=== PATIENT | female | born 1970 | race African-American/Black ===

== ENCOUNTER 2016-10-13 13:24 | Observation (INO) | payer MEDICARE, OTHER ==
[2016-10-13 13:34] VITALS: BMI 40.7
[2016-10-13 15:37] LABS: URINE APPEARANCE CLOUDY; URINE BILIRUBIN NEGATIVE (NEGATIVE); URINE COLOR LT. YELLOW; URINE GLUCOSE (UA) NEGATIVE (NEGATIVE); URINE KETONE NEGATIVE (NEGATIVE); URINE LEUK ESTERASE NEGATIVE (NEGATIVE); URINE NITRITE NEGATIVE (NEGATIVE); URINE UROBILINOGEN 0.2 E.U/dl E.U./dl (0.2-1.0)
[2016-10-13 15:50] LABS: URINE BLOOD 3+ (NEGATIVE); URINE PROTEIN 3+ (NEGATIVE)
[2016-10-13] MEDS ORDERED: SODIUM CHLORIDE 1,000 ML IV STA (15:56)
[2016-10-13] MEDS ORDERED: ONDANSETRON 4 MG/2 ML VIAL IVPUSH ONE (15:56)
[2016-10-13 16:02] LABS: URINE RBC TOO MANY TO COUNT /hpf (0-3)
[2016-10-13] MEDS ORDERED: MECLIZINE HCL 25 MG TABLET (FP) PO ONE ×2 (16:02→18:44)
[2016-10-13] MEDS ORDERED: ONDANSETRON 4 MG/2 ML VIAL ONE (16:02)
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
[2016-10-13 16:31] LABS: BASOPHIL 0.5 % (0-2.0); EOSINOPHIL 0.6 % (0-4.5); MCH 25.7 pg (25.7-33.7); MCHC 31.3 g/dl (32.0-36.0); MEAN CELL VOLUME 81.9 fl (80-96); MEAN PLT VOLUME 9.3 fl (7.5-11.1); PLATELET COUNT 194 K/MM3 (134-434); RDW 21.6 % (11.6-15.6)
[2016-10-13] MEDS ORDERED: MECLIZINE HCL 25 MG TABLET (FP) ONE ×3 (16:42→23:41)
[2016-10-13 16:51] LABS: ALBUMIN 3.9 g/dl (3.4-5.0); ANION GAP 11 (8-16); BILIRUBIN,TOTAL 0.3 mg/dL (0.2-1.0); CALCIUM 9.1 mg/dL (8.5-10.1); CO2 28 mmol/L (21-32); COCKROFT - GAULT 146.9565; CREATININE 0.9 mg/dL (0.55-1.02); GLUCOSE,RANDOM 108 mg/dL (74-106); SGOT/AST 20 U/L (15-37); SGPT/ALT 23 U/L (12-78); TOT PROT 7.6 g/dl (6.4-8.2)
[2016-10-13 16:52] LABS: ALK PHOS 77 U/L (45-117)
[2016-10-13 17:10] LABS: TROPONIN I < 0.02 ng/ml (0.00-0.05)
[2016-10-13] MEDS ORDERED: POTASSIUM CHLORIDE TABS 20 MEQ TABLET.ER (FP) PO ONE ×2 (18:10→18:14)
--- NOTE | 2016-10-13 19:39 | HP ---
CHIEF COMPLAINT: Dizziness, Nausea, Vomiting PCP: Dr. Rodriguez HISTORY OF PRESENT ILLNESS: This is a 46 y/o female with a past medical history of Hypertension, Anemia. Who presents to the emergency department with dizziness, blurred vision, nausea and vomiting x 1 day. Patient reports having a Martina taking an aspirin prior to event. Patient denies any focal deficits or numbness. Patient denies fever, chills, SOB, CP, AP, diarrhea, constipation, dysuria. Patient denies fall or head trauma. 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, employed Production Support Analyst Family History: Allergies No Known Allergies Allergy (Verified 10/13/16 13:34) HOME MEDICATIONS: Home Medications Medication Instructions Recorded Metoprolol Succinate [Toprol Xl] 0 mg PO DAILY 10/13/16 REVIEW OF SYSTEMS CONSTITUTIONAL: Absent: fever, chills, diaphoresis, generalized weakness, malaise, loss of appetite, weight change HEENT: visual changes Absent: rhinorrhea, nasal congestion, throat pain, throat swelling, difficulty swallowing, mouth swelling, ear pain, eye pain, CARDIOVASCULAR: Absent: chest pain, syncope, palpitations, irregular heart rate, lightheadedness , peripheral edema RESPIRATORY: Absent: cough, shortness of breath, dyspnea with exertion, orthopnea, wheezing, stridor, hemoptysis GASTROINTESTINAL: nausea, vomiting Absent: abdominal pain, abdominal distension, diarrhea, constipation, melena, hematochezia GENITOURINARY: Absent: dysuria, frequency, urgency, hesitancy, hematuria, flank pain, genital pain MUSCULOSKELETAL: Absent: myalgia, arthralgia, joint swelling, back pain, neck pain SKIN: Absent: rash, itching, pallor HEMATOLOGIC/IMMUNOLOGIC: Absent: easy bleeding, easy bruising, lymphadenopathy, frequent infections ENDOCRINE: Absent: unexplained weight gain, unexplained weight loss, heat intolerance, cold intolerance NEUROLOGIC: dizziness Absent: headache, focal weakness or paresthesias, unsteady gait, seizure, mental status changes, bladder or bowel incontinence PSYCHIATRIC: Absent: anxiety, depression, suicidal or homicidal ideation, hallucinations. PHYSICAL EXAMINATION Vital Signs - 24 hr 10/13/16 10/13/16 13:33 19:13 Temperature 97.8 F Pulse Rate 61 Pulse Rate [ 65 Apical] Respiratory 19 18 Rate Blood Pressure 134/79 Blood Pressure 122/78 [Left Arm] O2 Sat by Pulse 100 98 Oximetry (%) GENERAL: Awake, alert, and fully oriented, in no acute distress. HEAD: Normal with no signs of trauma. EYES: Pupils equal, round and reactive to light, extraocular movements intact, sclera anicteric, conjunctiva clear. No lid lag. EARS, NOSE, THROAT: Ears normal, nares patent, oropharynx clear without exudates. Moist mucous membranes. NECK: Normal range of motion, supple without lymphadenopathy, JVD, or masses. LUNGS: Breath sounds equal, clear to auscultation bilaterally. No wheezes, and no crackles. No accessory muscle use. HEART: Regular rate and rhythm, normal S1 and S2 without murmur, rub or gallop. ABDOMEN: Soft, nontender, not distended, normoactive bowel sounds, no guarding, no rebound, no masses. No hepatomegaly or splenomegaly. MUSCULOSKELETAL: Normal range of motion at all joints. No bony deformities or tenderness. No CVA tenderness. UPPER EXTREMITIES: 2+ pulses, warm, well-perfused. No cyanosis. No clubbing. No peripheral edema. LOWER EXTREMITIES: 2+ pulses, warm, well-perfused. No calf tenderness. No peripheral edema. NEUROLOGICAL: Cranial nerves II-XII intact. Normal speech. Gait not observed. PSYCHIATRIC: Cooperative. Good eye contact. Appropriate mood and affect. SKIN: Warm, dry, normal turgor, no rashes or lesions noted, normal capillary refill. Laboratory Results - last 24 hr 10/13/16 10/13/16 10/13/16 15:06 16:15 16:15 WBC 10.0 RBC 4.79 Hgb 12.3 D Hct 39.2 D MCV 81.9 MCHC 31.3 L RDW 21.6 H Plt Count 194 MPV 9.3 Neutrophils % 69.0 D Lymphocytes % 23.7 D Monocytes % 6.2 Eosinophils % 0.6 Basophils % 0.5 Sodium 138 Potassium 3.4 L Chloride 99 Carbon Dioxide 28 Anion Gap 11 BUN 11 Creatinine 0.9 Creat Clearance w eGFR > 60 Random Glucose 108 H Calcium 9.1 Total Bilirubin 0.3 AST 20 ALT 23 Alkaline Phosphatase 77 Creatine Kinase CK-MB (CK-2) Troponin I Total Protein 7.6 Albumin 3.9 Lipase 88 Urine Color Lt. yellow Urine Appearance Cloudy Urine pH 7.0 Ur Specific [place] 1.010 Urine Protein 3+ H Urine Glucose (UA) Negative Urine Ketones Negative Urine Blood 3+ H Urine Nitrite Negative Urine Bilirubin Negative Urine Urobilinogen 0.2 e.u/dl Ur Leukocyte Esterase Negative Urine RBC Too many to count Urine HCG, Qual Negative 10/13/16 16:15 WBC RBC Hgb Hct MCV MCHC RDW Plt Count MPV Neutrophils % Lymphocytes % Monocytes % Eosinophils % Basophils % Sodium Potassium Chloride Carbon Dioxide Anion Gap BUN Creatinine Creat Clearance w eGFR Random Glucose Calcium Total Bilirubin AST ALT Alkaline Phosphatase Creatine Kinase 279 H CK-MB (CK-2) 1.573 Troponin I < 0.02 Total Protein Albumin Lipase Urine Color Urine Appearance Urine pH Ur Specific [place] Urine Protein Urine Glucose (UA) Urine Ketones Urine Blood Urine Nitrite Urine Bilirubin Urine Urobilinogen Ur Leukocyte Esterase Urine RBC Urine HCG, Qual ASSESSMENT/PLAN: This is a 46 y/o female with a PMHx of: HTN, Anemia. Placed on Observation for Dizziness, Vertigo for further evaluation of their emergent condition. Plan: 1. Neuro: Vertigo - Likely secondary to arrhythmia vs URI vs mass - Head CT- negative for ICH, mass or lesion - EKG- reviewed - Meclizine x2, NS Bolus given in ED without relief - Appreciate Neurology Consult - Neuro Checks - Meclizine prn - Monitor CBC, BMP - Orthostatic Vitals - Fall Precautions - Consider Echo, Carotid Doppler if condition worsens 2. Nausea and Vomiting - Likely secondary to Vertigo vs viral syndrome vs tumor - NS bolus, Zofran given in ED with some relief - Zofran prn - PO fluid challenge - Clear Liquid Diet ad jung - Monitor BMP - Monitor vitals 3. Hypokalemia - Likely secondary to gastrointestinal losses - Repleted with Kcl in ED - Monitor BMP - EKG- Sinus Bradycardia 4. HTN - Controlled - Will hold med for now secondary to dizziness 5. Anemia - Hgb at baseline - Continue ferrous sulfate 6. FEN - PO Fluids ad jung - Replete lytes prn - Clear Liquid advance ad jung 7. DVT Prophylaxis - OOB - SCDs - Consider ACs if LOS > 48 hrs Code Status: Full Code Problem List - Problem (1) Dizziness Code(s): R42 - DIZZINESS AND GIDDINESS (2) HTN (hypertension) with goal to be determined Code(s): I10 - ESSENTIAL (PRIMARY) HYPERTENSION (3) Anemia Code(s): D64.9 - ANEMIA, UNSPECIFIED (4) DVT prophylaxis Code(s): BFC1607 - Visit type - Emergency Visit Emergency Visit: Yes ED Registration Date: 10/13/16 Care time: The patient presented to the Emergency Department on the above date and was hospitalized for further evaluation of their emergent condition. - New Patient This patient is new to me today: Yes Date on this admission: 10/13/16 - Critical Care Critical Care patient: No
[2016-10-13] MEDS ORDERED: MECLIZINE HCL 25 MG TABLET (FP) PO PRN (20:52)
[2016-10-14 06:51] LABS: BASOPHIL 0.5 % (0-2.0); EOSINOPHIL 1.9 % (0-4.5); MCH 26.5 pg (25.7-33.7); MCHC 32.6 g/dl (32.0-36.0); MEAN CELL VOLUME 81.5 fl (80-96); MEAN PLT VOLUME 9.2 fl (7.5-11.1); NEUTROPHILS 53.5 % (42.8-82.8); PLATELET COUNT 178 K/MM3 (134-434); RDW 22.1 % (11.6-15.6); WHITE BLOOD COUNT 9.5 K/mm3 (4.0-10.0)
[2016-10-14 07:02] LABS: CALCIUM 8.6 mg/dL (8.5-10.1); COCKROFT - GAULT 132.26; MAGNESIUM 1.6 mg/dL (1.8-2.4); PHOSPHOROUS 3.4 mg/dL (2.5-4.9)
[2016-10-14] MEDS ORDERED: POTASSIUM CHLORIDE TABS 20 MEQ TABLET.ER (FP) PO SCH (08:00)
[2016-10-14] MEDS ORDERED: POTASSIUM CHLORIDE TABS 20 MEQ TABLET.ER (FP) PO ONE (08:45)
[2016-10-14 09:21] LABS: ANISOCYTOSIS 2+; HYPOCHROMIA 1+; MICROCYTOSIS 2+; TEAR DROP CELLS FEW
[2016-10-14 09:29] VITALS: PULSE 71; TEMP 98.7
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
[2016-10-14 11:34] VITALS: BP 146/84
--- NOTE | 2016-10-14 17:12 | EKG ---
Test Reason : Blood Pressure : / mmHG Vent. Rate : 058 BPM Atrial Rate : 058 BPM P-R Int : 184 ms QRS Dur : 104 ms QT Int : 484 ms P-R-T Axes : 020 004 016 degrees QTc Int : 475 ms SINUS BRADYCARDIA VOLTAGE CRITERIA FOR LEFT VENTRICULAR HYPERTROPHY ABNORMAL ECG WHEN COMPARED WITH ECG OF 09-MAY-2014 09:48, NO SIGNIFICANT CHANGE WAS FOUND Confirmed by AMY FAUST MD ([id number]) on 10/14/2016 5:12:40 PM Referred By: Confirmed By:AMY FAUST MD
--- NOTE | 2016-10-14 19:24 | DS ---
Physical Exam: SUBJECTIVE: Patient seen and examined oob to chair. Still a little dizzy with head movement. OBJECTIVE: Vital Signs Period Temp Pulse Resp BP Sys/Pham Pulse Ox Last 24 Hr 97.9 F-98.7 F 68-71 17-20 116-146/61-91 98-99 PHYSICAL EXAM GENERAL: The patient is awake, alert, and fully oriented, in no acute distress. HEAD: Normal with no signs of trauma. EYES: PERRL, extraocular movements intact, sclera anicteric, conjunctiva clear. ENT: Ears normal, nares patent, oropharynx clear without exudates, moist mucous membranes. NECK: Trachea midline, full range of motion, supple. LUNGS: Breath sounds equal, clear to auscultation bilaterally, no wheezes, no crackles, no accessory muscle use. HEART: Regular rate and rhythm, S1, S2 without murmur, rub or gallop. ABDOMEN: Soft, nontender, nondistended, normoactive bowel sounds, no guarding, no rebound, no hepatosplenomegaly, no masses. EXTREMITIES: 2+ pulses, warm, well-perfused, no edema. NEUROLOGICAL: Cranial nerves II through XII grossly intact. Normal speech, gait not observed. LABS Laboratory Results - last 24 hr 10/14/16 10/14/16 05:50 05:50 WBC 9.5 RBC 4.38 Hgb 11.6 Hct 35.7 MCV 81.5 MCHC 32.6 RDW 22.1 H Plt Count 178 MPV 9.2 Neutrophils % 53.5 D Lymphocytes % 37.0 D Monocytes % 7.1 Eosinophils % 1.9 D Basophils % 0.5 Hypochromic-Microcytic 1+ Anisocytosis 2+ Microcytosis 2+ Tear Drop Cells Few Sodium 140 Potassium 3.3 L Chloride 101 Carbon Dioxide 26 Anion Gap 13 BUN 11 Creatinine 1.0 Random Glucose 116 H Calcium 8.6 Phosphorus 3.4 Magnesium 1.6 L HOSPITAL COURSE: Date of Admission:10/13/16 Date of Discharge: 10/14/16 Prehospital course 46 y/o female with a past medical history of hypertension and anemia. Presented to the emergency department with room spinning dizziness, blurred vision, nausea and vomiting x 1 day. Patient denied weakness, numbness, paresthesias, difficulty speaking or walking. Denied fever, chills, SOB, CP, AP, diarrhea, constipation, dysuria. Patient denied fall or head trauma. ER course was notable for: (1) CT Head- negative for acute pathology (2) Labs - unremarkable (3) EKG- Sinus bradycardia Subsequent hospital course Patient treated with meclizine and IV fluids with improvement but not complete resolution of symptoms of room-spinning dizziness and nausea with head movement. Seen and evaluated by neurology. Most likely benign positional vertigo. No evidence of stroke, cerebellar dysfunction, post column disease, or cord compression. Discharged with script for meclizine and instructions on how to perform Alisa's maneuver. Minutes to complete discharge: 35 Discharge Summary Reason For Visit: DIZZINESS Current Active Problems Anemia (Acute) DVT prophylaxis (Acute) Dizziness (Acute) HTN (hypertension) with goal to be determined (Acute) Condition: Improved - Instructions Diet, Activity, Other Instructions: A prescription has been sent to your pharmacy for meclizine. Take as needed for dizziness. Return to the emergency department for any new or worsening symptoms. Referrals: Isabelle Oates MD [Primary Care Provider] - Disposition: HOME - Home Medications Comprehensive Discharge Medication List: Ambulatory Orders Metoprolol Succinate [Toprol Xl] 0 mg PO DAILY 10/13/16 Meclizine HCl [Antivert -] 25 mg PO TID PRN #15 tablet 10/14/16 This patient is new to me today: Yes Date on this admission: 10/14/16 Emergency Visit: Yes ED Registration Date: 10/13/16 Care time: The patient presented to the Emergency Department on the above date and was hospitalized for further evaluation of their emergent condition. Critical Care patient: No - Discharge Referral Referred to [facility] Med [facility] No
== END 2016-10-14 11:35 | disposition home or self-care (01) ==
LOC: JER 13:24 → JERBED 19:35
PROVIDERS: ADMIT Internal Medicine; ATTEND Nurse Practitioner Acute Care
PROC: 3E033GC Introduction of Other Therapeutic Substance into Peripheral Vein, Percutaneous Approach (ICD-10-PCS; principal; 2016-10-13)
PROC: 3E0337Z Introduction of Electrolytic and Water Balance Substance into Peripheral Vein, Percutaneous Approach (ICD-10-PCS; 2016-10-13)
DX: R42 Dizziness and giddiness (principal); E87.6 Hypokalemia; I10 Essential (primary) hypertension; D64.9 Anemia, unspecified
CPT/HCPCS: 36415; 70450-TC; 80048; 80053; 81003; 81015; 82550; 82553; 83690; 83735; 84100; 84484; 84703; 85025; 93005; 93010; 99285-25; G0378

== ENCOUNTER 2017-02-19 17:25 | Emergency (ER) | payer OTHER, MEDICARE ==
[2017-02-19 17:29] VITALS: BP 150/90; PULSE 109; TEMP 98.4; BMI 40.7
[2017-02-19] MEDS ORDERED: KETOROLAC TROMETHAMINE 60 MG/2 ML VIAL IM ONE (18:08)
[2017-02-19] MEDS ORDERED: CYCLOBENZAPRINE HCL 10 MG TABLET (FP) PO ONE (18:08)
[2017-02-19] MEDS ORDERED: CYCLOBENZAPRINE HCL 10 MG TABLET (FP) ONE (18:11)
[2017-02-19] MEDS ORDERED: KETOROLAC TROMETHAMINE 60 MG/2 ML VIAL ONE (18:11)
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
== END 2017-02-19 18:19 | disposition home or self-care (01) ==
LOC: JERFT 17:25
PROC: 3E0333Z Introduction of Anti-inflammatory into Peripheral Vein, Percutaneous Approach (ICD-10-PCS; principal; 2017-02-19)
DX: M54.2 Cervicalgia (principal); I10 Essential (primary) hypertension
CPT/HCPCS: 99281-25

== ENCOUNTER 2018-04-06 10:09 | Emergency (ER) | payer SELFPAY ==
[2018-04-06 10:25] VITALS: BP 153/84; PULSE 74; TEMP 98.3; BMI 40.1
[2018-04-06] MEDS ORDERED: KETOROLAC TROMETHAMINE 60 MG/2 ML VIAL IM ONE (10:40)
[2018-04-06] MEDS ORDERED: KETOROLAC TROMETHAMINE 60 MG/2 ML VIAL ONE (10:52)
--- NOTE | 2018-04-06 11:01 | PDOC ---
History of Present Illness - General Chief Complaint: Pain, Acute Stated Complaint: PAIN Time Seen by Provider: 04/06/18 10:30 History Source: Patient Exam Limitations: No Limitations - History of Present Illness Initial Comments: 04/06/18 11:08 48yr female with pain to her upper back right side neck radiates to her right upper arm for 3 days, worse with movement, painful to touch her neck. 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 no SOB no fever no recent uri. Associated Symptoms: denies: denies symptoms Past History - Past Medical History Allergies/Adverse Reactions: Allergies Allergy/AdvReac Type Severity Reaction Status Date / Time No Known Allergies Allergy Verified 04/06/18 10:22 Home Medications: Ambulatory Orders Cyclobenzaprine HCl [Flexeril -] 10 mg PO TID PRN #15 tablet 04/06/18 Naproxen [Naprosyn -] 500 mg PO BID #14 tablet 04/06/18 Anemia: No Asthma: No Cancer: No Cardiac Disorders: No CVA: No COPD: No CHF: No Dementia: No Diabetes: No GI Disorders: No Disorders: No HTN: Yes Hypercholesterolemia: No Liver Disease: No Seizures: No Thyroid Disease: No - Surgical History Abdominal Surgery: No Appendectomy: No Cardiac Surgery: No Cholecystectomy: No Lung Surgery: No Neurologic Surgery: No Orthopedic Surgery: No - Reproductive History Spontaneous : 2 - Suicide/Smoking/Psychosocial Hx Smoking Status: No Smoking History: Never smoked Have you smoked in the past 12 months: No Number of Cigarettes Smoked Daily: 0 Hx Alcohol Use: No Drug/Substance Use Hx: No Substance Use Type: None Hx Substance Use Treatment: No Review of Systems - Review of Systems Able to Perform ROS?: Yes Is the patient limited Somali proficient: No Constitutional: No: Symptoms Reported HEENTM: No: Symptoms Reported Respiratory: No: Symptoms reported Cardiac (ROS): No: Symptoms Reported ABD/GI: No: Symptoms Reported : No: Symptoms Reported Musculoskeletal: Yes: Symptoms Reported, Neck Pain Integumentary: No: Symptoms Reported Neurological: No: Symptoms reported *Physical Exam - Vital Signs Last Vital Signs Temp Pulse Resp BP Pulse Ox 98.3 F 74 16 153/84 99 04/06/18 10:15 04/06/18 10:15 04/06/18 10:15 04/06/18 10:15 04/06/18 10:15 - Physical Exam General Appearance: Yes: Nourished, Appropriately Dressed HEENT: positive: EOMI, CINDY Neck: positive: Supple, Tender lateral (right side muscle spasm, tender to touch ). 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 muscle spasm radiculopathy will get cspine toradol for pain ; 04/06/18 11:10 *DC/Admit/Observation/Transfer Diagnosis at time of Disposition: Musculoskeletal pain, Muscle spasm - Discharge Dispostion Disposition: HOME Condition at time of disposition: Good - Prescriptions Prescriptions: Cyclobenzaprine HCl [Flexeril -] 10 mg PO TID PRN #15 tablet PRN Reason: Muscle Spasms Naproxen [Naprosyn -] 500 mg PO BID #14 tablet - Referrals Referrals: Fazal Grant MD [Staff Physician] - - Patient Instructions Additional Instructions: apply heating pad to the area of pain every 3hrs for 30 minutes apply a topical rubbing cream such as Icy Hot or Biofreeze to the muscles that are sore and tight take the muscle relaxant and anti-inflammatory as directed, you can take together but dont drive if taking the muscle relaxant flexeril follow with the orthopedist for follow up - Post Discharge Activity
== END 2018-04-06 11:35 | disposition home or self-care (01) ==
LOC: JERFT 10:09 → JER 10:09 → JERFT 11:35
PROC: 3E0233Z Introduction of Anti-inflammatory into Muscle, Percutaneous Approach (ICD-10-PCS; principal; 2018-04-06)
DX: M62.838 Other muscle spasm (principal)
CPT/HCPCS: 72050-TC-FY; 99281-25

== ENCOUNTER 2018-10-22 09:15 | Emergency (ER) | payer SELFPAY | END 2018-10-22 10:15 | disposition home or self-care (01) | LOC: JERFT 09:15 ==

== ENCOUNTER 2019-07-07 09:42 | Emergency (ER) | payer SELFPAY ==
[2019-07-07 09:47] VITALS: BP 133/74; PULSE 71; TEMP 97.8; BMI 41.5
--- NOTE | 2019-07-07 10:55 | PDOC ---
History of Present Illness - General Chief Complaint: Sore Throat Stated Complaint: SORE THROAT Time Seen by Provider: 07/07/19 09:56 History Source: Patient Exam Limitations: Clinical Condition - History of Present Illness Initial Comments: 07/07/19 10:51 Patient with history of pretension on meds presented with complaint of one-week history of persistent sore throat, dry cough, nasal congestion and sinus congestion. Denies fever, chills, nausea or vomiting. Denies abdominal pains. Patient report taking [id number] medication with minimal improvement Is this a multiple visit Asthma Patient?: No Timing/Duration: 1 week Past History - Past Medical History Allergies/Adverse Reactions: Allergies Allergy/AdvReac Type Severity Reaction Status Date / Time No Known Allergies Allergy Verified 10/22/18 09:21 Home Medications: Ambulatory Orders Valacyclovir HCl [Valtrex] 1,000 mg PO TID #21 tablet 10/22/18 Azithromycin [Zithromax Tri-Michael (3 DAYS) -] 500 mg PO DAILY #3 tablet 07/07/19 Benzonatate [Tessalon Pearls -] 100 mg PO Q8H PRN #20 capsule 07/07/19 Methylprednisolone [Medrol Dose Michael] 4 mg PO ASDIR #21 tablet 07/07/19 Anemia: No Asthma: No Cancer: No Cardiac Disorders: No CVA: No COPD: No CHF: No Dementia: No Diabetes: No GI Disorders: No Disorders: No HTN: Yes Hypercholesterolemia: No Liver Disease: No Seizures: No Thyroid Disease: No - Surgical History Abdominal Surgery: No Appendectomy: No Cardiac Surgery: No Cholecystectomy: No Lung Surgery: No Neurologic Surgery: No Orthopedic Surgery: No - Reproductive History Spontaneous : 2 - Immunization History Immunization Up to Date: No - Psycho Social/Smoking Cessation Hx Smoking Status: No Smoking History: Never smoked Have you smoked in the past 12 months: No Number of Cigarettes Smoked Daily: 0 Information on smoking cessation initiated: No Hx Alcohol Use: No Drug/Substance Use Hx: No Substance Use Type: None Hx Substance Use Treatment: No Review of Systems - Review of Systems Able to Perform ROS?: Yes Is the patient limited Georgian proficient: No Constitutional: No: Chills, Fever, Malaise HEENTM: Yes: Symptoms Reported, See HPI, Nose Congestion, Throat Pain. No: Eye Pain, Blurred Vision, Tearing, Recent change in vision, Double Vision, Cataracts , Ear Pain, Ocular Prothesis, Ear Discharge, Nose Pain, Tinnitus, Nose Bleeding , Hearing Loss, Throat Swelling, Mouth Pain, Dental Problems, Difficulty Swallowing, Mouth Swelling, Other Respiratory: Yes: Symptoms reported, See HPI, Cough. No: Orthopnea, Shortness of Breath, SOB with Exertion, SOB at Rest, Stridor, Wheezing, Productive cough, Hemoptysis, Other Cardiac (ROS): No: Symptoms Reported, See HPI, Chest Pain, Edema, Irregular Heart Rate, Lightheadedness, Palpitations, Syncope, Chest Tightness, Other ABD/GI: No: Symptoms Reported, See HPI, Nausea, Vomiting Musculoskeletal: No: Symptoms Reported All Other Systems: Reviewed and Negative *Physical Exam - Vital Signs Last Vital Signs Temp Pulse Resp BP Pulse Ox 97.8 F 71 18 133/74 100 07/07/19 09:45 07/07/19 09:45 07/07/19 09:45 07/07/19 09:45 07/07/19 09:45 - Physical Exam 07/07/19 10:52 GENERAL: Well developed, well nourished. Awake and alert. No acute distress. HEENT: Mild pharyngeal erythema without exudates. Normocephalic, atraumatic. PERRLA, EOMI. No conjunctival pallor. Sclera are non-icteric. Moist mucous membranes. NECK: Supple. Full ROM. CARDIOVASCULAR: Regular rate and rhythm. No murmurs, rubs, or gallops. Distal pulses are 2+ and symmetric. PULMONARY: No evidence of respiratory distress. Lungs clear to auscultation bilaterally. No wheezing, rales or rhonchi. ABDOMINAL: Soft. Non-tender. Non-distended. No rebound or guarding. No organomegaly. Normoactive bowel sounds. MUSCULOSKELETAL Normal range of motion at all joints. SKIN: Warm and dry. Normal capillary refill. No rashes. No jaundice. NEUROLOGICAL: Alert, awake, appropriate. Gait is normal without ataxia. PSYCHIATRIC: Cooperative. Good eye contact. Appropriate mood General Appearance: Yes: Nourished, Appropriately Dressed. No: Apparent Distress Medical Decision Making - Medical Decision Making 07/07/19 10:51 Patient with history of pretension on meds presented with complaint of one-week history of persistent sore throat, dry cough, nasal congestion and sinus congestion. Denies fever, chills, nausea or vomiting. Denies abdominal pains. Patient report taking [id number] medication with minimal improvement Exam significant for mild pharyngeal erythema otherwise unremarkable exam. Lungs clear to auscultation bilateral. Patient afebrile. Patient symptoms likely strep with URI versus viral URI. Rapid strep ordered to rule out strep but patient report could not wait as she has to be at work. Will treat patient empirically on Zithromax for pharyngitis and Tessalon Perles for cough with Medrol Michael for congestion with advised to increase fluid intake and PCP follow- up Discharge - Discharge Information Problems reviewed: Yes Clinical Impression/Diagnosis: URI (upper respiratory infection) Qualifiers: URI type: unspecified URI Qualified Code(s): J06.9 - Acute upper respiratory infection, unspecified Pharyngitis Qualifiers: Pharyngitis/tonsillitis etiology: unspecified etiology Qualified Code(s): J02.9 - Acute pharyngitis, unspecified Condition: Stable Disposition: HOME - Admission No - Additional Discharge Information Prescriptions: Azithromycin [Zithromax Tri-Michael (3 DAYS) -] 500 mg PO DAILY #3 tablet Benzonatate [Tessalon Pearls -] 100 mg PO Q8H PRN #20 capsule PRN Reason: Cough Methylprednisolone [Medrol Dose Michael] 4 mg PO ASDIR #21 tablet - Follow up/Referral - Patient Discharge Instructions Patient Printed Discharge Instructions: DI for Pharyngitis/Tonsillopharyngitis -- Adult Additional Instructions: Take medication as prescribed. Increase fluid intake. Take Motrin as needed for fever and pain. Follow-up with primary care - Post Discharge Activity
== END 2019-07-07 11:00 | disposition home or self-care (01) ==
LOC: JERFT 09:42
DX: J06.9 Acute upper respiratory infection, unspecified (principal); J02.9 Acute pharyngitis, unspecified
CPT/HCPCS: 87070; 87880; 99282-25

== ENCOUNTER 2020-06-28 10:13 | Emergency (ER) | payer OTHER ==
[2020-06-28 10:45] VITALS: BP 142/95; PULSE 88; TEMP 98.1; BMI 41.5
[2020-06-28] MEDS ORDERED: ACETAMINOPHEN 325 MG TABLET (FP) PO ONE (11:12)
[2020-06-28] MEDS ORDERED: KETOROLAC TROMETHAMINE 30 MG/1 ML VIAL IM ONE (11:12)
[2020-06-28] MEDS ORDERED: LIDOCAINE 5% TOPICAL PATCH TP ONE (11:12)
[2020-06-28] MEDS ORDERED: ACETAMINOPHEN 325 MG TABLET (FP) ONE (11:23)
[2020-06-28] MEDS ORDERED: LIDOCAINE 5% TOPICAL PATCH ONE (11:23)
[2020-06-28] MEDS ORDERED: KETOROLAC TROMETHAMINE 30 MG/1 ML VIAL ONE (11:24)
[2020-06-28] MEDS ORDERED: LIDOCAINE PATCH REMOVAL MC ONE (23:30)
== END 2020-06-28 12:04 | disposition home or self-care (01) ==
LOC: JER 10:13
PROC: 3E0233Z Introduction of Anti-inflammatory into Muscle, Percutaneous Approach (ICD-10-PCS; principal; 2020-06-28)
DX: M25.512 Pain in left shoulder (principal)
CPT/HCPCS: 99284-25

== ENCOUNTER 2021-01-02 06:21 | Inpatient (IN) | payer OTHER ==
[2021-01-02 06:34] VITALS: BMI 40.7
[2021-01-02] MEDS ORDERED: ONDANSETRON 4 MG/2 ML VIAL IVPUSH ONE (08:00)
[2021-01-02] MEDS ORDERED: LACTATED RINGERS SOLUTION 1,000 ML/1,000 ML INFUS.BAG IV STA (08:00)
[2021-01-02] MEDS ORDERED: FAMOTIDINE 20 MG/50 ML IVPB 20 MG/50 ML MG IVPB ONE ×2 (08:01→08:09)
[2021-01-02] MEDS ORDERED: ONDANSETRON 4 MG/2 ML VIAL ONE (08:08)
[2021-01-02 09:05] LABS: BASO % 0.3 % (0-2.0); HEMATOCRIT 42.4 % (32.4-45.2); HEMOGLOBIN 14.1 GM/dL (10.7-15.3); LYMPH % 13.2 % (8-40); MCH 27.1 pg (25.7-33.7); MCHC 33.3 g/dl (32.0-36.0); MEAN CELL VOLUME 81.3 fl (80-96); MEAN PLT VOLUME 9.2 fl (7.5-11.1); MONO % 7.1 % (3.8-10.2); NEUT % 79.4 % (42.8-82.8); PLATELET COUNT 194 10^3/uL (134-434); RBC 5.21 M/mm3 (3.60-5.2); RDW 16.5 % (11.6-15.6); WHITE BLOOD COUNT 7.2 K/mm3 (4.0-10.0)
[2021-01-02 09:07] LABS: VENOUS BASE EXCESS 2.8 mmol/L (-2-2); VENOUS O2 SATURATION 48.8 % (70-80); VENOUS PCO2 47.2 mmHg (38-52); VENOUS PH 7.398 (7.310-7.410)
[2021-01-02 09:12] LABS: INR 1.15 (0.83-1.09); PROTHROMBIN TIME (PATIENT) 13.9 SEC (9.7-13.0)
[2021-01-02 09:15] LABS: ACTIVATED PTT 31.6 SECONDS (25.2-36.5)
[2021-01-02 09:28] LABS: CHLORIDE 100 mmol/L (98-107); SODIUM 137 mmol/L (136-145)
[2021-01-02 09:30] LABS: CALCIUM 8.5 mg/dL (8.5-10.1)
[2021-01-02 09:31] LABS: ALBUMIN 3.8 g/dl (3.4-5.0); ANION GAP 11 MMOL/L (8-16); BLOOD UREA NITROGEN 23.1 mg/dL (7-18); CO2 27 mmol/L (21-32); GLUCOSE,RANDOM 148 mg/dL (74-106)
[2021-01-02 09:33] LABS: BILIRUBIN,DIRECT < 0.1 mg/dL (0.0-0.2)
[2021-01-02 09:34] LABS: CREATININE 1.7 mg/dL (0.55-1.3); SGOT/AST 79 U/L (15-37); SGPT/ALT 57 U/L (13-61)
[2021-01-02 09:35] LABS: BILIRUBIN,TOTAL 0.4 mg/dL (0.2-1); LDH 561 U/L (84-246); TOT PROT 8.5 g/dl (6.4-8.2)
[2021-01-02 09:36] LABS: ALK PHOS 80 U/L (45-117)
[2021-01-02] MEDS ORDERED: ACETAMINOPHEN 1000 MG/100 ML VIAL (NON FORMULARY) IVPB ONE (10:37)
[2021-01-02] MEDS ORDERED: ACETAMINOPHEN INJECTION 100 ML IVPB ONE (10:53)
[2021-01-02] MEDS: DEXTROSE 5%-LACTATED RINGERS 1,000 ML IV SCH (11:11)
[2021-01-02 12:32] LABS: EPI CELLS >36 /uL (0-25.1); HYALINE CASTS 3 /uL (0-3.1); URINE APPEARANCE Error; URINE BACTERIA 622 /uL (0-1359); URINE BILIRUBIN NEGATIVE (NEGATIVE); URINE COLOR YELLOW; URINE GLUCOSE (UA) NEGATIVE (NEGATIVE); URINE KETONE TRACE (NEGATIVE); URINE LEUK ESTERASE NEGATIVE (NEGATIVE); URINE NITRITE NEGATIVE (NEGATIVE); URINE PROTEIN 4+ (NEGATIVE); URINE RBC 18 /uL (0-23.9); URINE UROBILINOGEN 0.2 mg/dL (0.2-1.0); URINE WBC 19 /uL (0-25.8)
[2021-01-02] MEDS ORDERED: ACETAMINOPHEN 500 MG TABLET (FP) PO ONE (17:14)
[2021-01-02] MEDS: ONDANSETRON 4 MG/2 ML VIAL IVPUSH PRN (18:11)
[2021-01-02] MEDS: ENOXAPARIN NA (PORCINE) 40 MG/0.4 ML DISP.SYRIN SQ SCH (18:11)
[2021-01-02] MEDS ORDERED: cefTRIAXone SODIUM 1 GM VIAL ONE (18:17)
[2021-01-02] MEDS ORDERED: DEXTROSE 5%-WATER - 50 ML IVPB ONE (18:17)
[2021-01-02] MEDS: ACETAMINOPHEN 325 MG TABLET (FP) PO PRN (18:21)
[2021-01-02] MEDS: CEFTRIAXONE 1 GM in DEXTROSE 5%-WATER - 50 ML IVPB SCH (18:21)
[2021-01-02] MEDS ORDERED: REMDESIVIR 200 MG in SODIUM CHLORIDE 250 ML IVPB ONE (20:00)
[2021-01-02] MEDS: ZINC SULFATE 220 MG CAPSULE (FP) PO SCH (21:48)
[2021-01-02] MEDS ORDERED: HEPARIN NA (PORCINE) 5,000 UNITS/ML 1ML VIAL SQ SCH (22:00)
[2021-01-02] MEDS: ASCORBIC ACID 250 MG TABLET (FP) PO SCH (23:27)
[2021-01-03] MEDS: ONDANSETRON 4 MG/2 ML VIAL IVPUSH PRN (00:19)
[2021-01-03] MEDS: ACETAMINOPHEN 325 MG TABLET (FP) PO PRN (06:11)
[2021-01-03] MEDS ORDERED: PT OWN MED DRAWER 7, Y5N ONE ×3 (06:26→22:45)
[2021-01-03 08:43] LABS: BASO % 0.3 % (0-2.0); HEMATOCRIT 38.2 % (32.4-45.2); HEMOGLOBIN 12.6 GM/dL (10.7-15.3); LYMPH % 17.4 % (8-40); MCH 27.1 pg (25.7-33.7); MEAN CELL VOLUME 82.2 fl (80-96); MEAN PLT VOLUME 9.2 fl (7.5-11.1); MONO % 6.4 % (3.8-10.2); NEUT % 75.9 % (42.8-82.8); PLATELET COUNT 161 10^3/uL (134-434); RBC 4.64 M/mm3 (3.60-5.2); RDW 16.3 % (11.6-15.6); WHITE BLOOD COUNT 6.1 K/mm3 (4.0-10.0)
[2021-01-03 08:59] LABS: CHLORIDE 101 mmol/L (98-107); SODIUM 138 mmol/L (136-145)
[2021-01-03 09:06] LABS: CALCIUM 8.1 mg/dL (8.5-10.1)
[2021-01-03 09:07] LABS: ALBUMIN 3.2 g/dl (3.4-5.0); BLOOD UREA NITROGEN 20.4 mg/dL (7-18); CO2 25 mmol/L (21-32); GLUCOSE,RANDOM 237 mg/dL (74-106); MAGNESIUM 1.8 mg/dL (1.8-2.4)
[2021-01-03 09:10] LABS: CREATININE 1.6 mg/dL (0.55-1.3); SGOT/AST 73 U/L (15-37); SGPT/ALT 62 U/L (13-61)
[2021-01-03 09:11] LABS: BILIRUBIN,TOTAL 0.2 mg/dL (0.2-1); TOT PROT 6.9 g/dl (6.4-8.2)
[2021-01-03 09:13] LABS: ALK PHOS 64 U/L (45-117)
[2021-01-03 09:40] LABS: ANION GAP 12 MMOL/L (8-16)
[2021-01-03] MEDS ORDERED: cefTRIAXone SODIUM 1 GM VIAL ONE (09:48)
[2021-01-03] MEDS ORDERED: DEXTROSE 5%-WATER - 50 ML IVPB ONE (09:49)
[2021-01-03] MEDS: KCL 10 MEQ IVPB 10 MEQ/100 ML INFUS.BAG IVPB SCH ×3 (09:57→14:27)
[2021-01-03] MEDS: ASCORBIC ACID 250 MG TABLET (FP) PO SCH ×2 (09:59→22:51)
[2021-01-03] MEDS: ZINC SULFATE 220 MG CAPSULE (FP) PO SCH ×3 (09:59→22:53)
[2021-01-03] MEDS: CHOLECALCIFEROL (VIT D3) 5000 UNITS (125 MCG) CAP PO SCH (09:59)
[2021-01-03] MEDS: DEXAMETHASONE SOD PHOSPHATE 4 MG/1 ML VIAL IVPUSH SCH (10:00)
[2021-01-03] MEDS: PANTOPRAZOLE SODIUM 40 MG VIAL IVPUSH SCH (10:05)
[2021-01-03] MEDS: ENOXAPARIN NA (PORCINE) 40 MG/0.4 ML DISP.SYRIN SQ SCH (10:07)
[2021-01-03] MEDS: DEXTROSE 5%-LACTATED RINGERS 1,000 ML IV SCH (10:57)
[2021-01-03 11:07] LABS: LIPASE 278 U/L (73-393)
[2021-01-03] MEDS: CEFTRIAXONE 1 GM in DEXTROSE 5%-WATER - 50 ML IVPB SCH (11:49)
[2021-01-03] MEDS ORDERED: POTASSIUM CHLORIDE TABS 20 MEQ TABLET.ER (FP) PO ONE (16:10)
[2021-01-03] MEDS: LACTATED RINGERS SOLUTION 1,000 ML/1,000 ML INFUS.BAG IV SCH (19:35)
[2021-01-03] MEDS: REMDESIVIR 100 MG in SODIUM CHLORIDE 250 ML IVPB SCH (22:51)
[2021-01-04] MEDS ORDERED: ACETAMINOPHEN 325 MG TABLET (FP) PO ONE (06:02)
[2021-01-04 06:11] LABS: EPI CELLS 22 /uL (0-25.1); HYALINE CASTS 8 /uL (0-3.1); PH,URINE 5.5 (5.0-8.0); URINE APPEARANCE CLEAR; URINE BACTERIA 4 /uL (0-1359); URINE BILIRUBIN NEGATIVE (NEGATIVE); URINE COLOR YELLOW; URINE GLUCOSE (UA) NEGATIVE (NEGATIVE); URINE KETONE TRACE (NEGATIVE); URINE LEUK ESTERASE NEGATIVE (NEGATIVE); URINE NITRITE NEGATIVE (NEGATIVE); URINE PROTEIN 2+ (NEGATIVE); URINE RBC 10 /uL (0-23.9); URINE UROBILINOGEN 0.2 mg/dL (0.2-1.0); URINE WBC 15 /uL (0-25.8)
[2021-01-04] MEDS ORDERED: cefTRIAXone SODIUM 1 GM VIAL ONE (09:14)
[2021-01-04] MEDS ORDERED: DEXTROSE 5%-WATER - 50 ML IVPB ONE (09:14)
[2021-01-04] MEDS: PANTOPRAZOLE SODIUM 40 MG VIAL IVPUSH SCH (09:26)
[2021-01-04] MEDS: DEXAMETHASONE SOD PHOSPHATE 4 MG/1 ML VIAL IVPUSH SCH (09:26)
[2021-01-04] MEDS: CEFTRIAXONE 1 GM in DEXTROSE 5%-WATER - 50 ML IVPB SCH (09:27)
[2021-01-04] MEDS: ENOXAPARIN NA (PORCINE) 40 MG/0.4 ML DISP.SYRIN SQ SCH (09:28)
[2021-01-04 09:50] LABS: BASO % 0.2 % (0-2.0); HEMATOCRIT 37.2 % (32.4-45.2); HEMOGLOBIN 12.2 GM/dL (10.7-15.3); LYMPH % 21.3 % (8-40); MCHC 32.7 g/dl (32.0-36.0); MEAN CELL VOLUME 82.4 fl (80-96); MONO % 6.2 % (3.8-10.2); NEUT % 72.3 % (42.8-82.8); PLATELET COUNT 167 10^3/uL (134-434); RBC 4.51 M/mm3 (3.60-5.2); RDW 16.1 % (11.6-15.6); WHITE BLOOD COUNT 7.4 K/mm3 (4.0-10.0)
[2021-01-04] MEDS: ZINC SULFATE 220 MG CAPSULE (FP) PO SCH ×2 (09:53→21:15)
[2021-01-04] MEDS: ASCORBIC ACID 250 MG TABLET (FP) PO SCH ×2 (09:53→21:15)
[2021-01-04] MEDS: CHOLECALCIFEROL (VIT D3) 5000 UNITS (125 MCG) CAP PO SCH (09:59)
[2021-01-04 10:17] LABS: BLOOD UREA NITROGEN 24.3 mg/dL (7-18); MAGNESIUM 1.9 mg/dL (1.8-2.4)
[2021-01-04 10:18] LABS: ALBUMIN 2.9 g/dl (3.4-5.0)
[2021-01-04 10:20] LABS: CREATININE 1.5 mg/dL (0.55-1.3)
[2021-01-04 10:22] LABS: BILIRUBIN,TOTAL 0.5 mg/dL (0.2-1); TOT PROT 6.6 g/dl (6.4-8.2)
[2021-01-04] MEDS: LACTATED RINGERS SOLUTION 1,000 ML/1,000 ML INFUS.BAG IV SCH ×2 (11:22→20:45)
[2021-01-04] MEDS: REMDESIVIR 100 MG in SODIUM CHLORIDE 250 ML IVPB SCH (20:46)
[2021-01-04] MEDS: ACETAMINOPHEN 325 MG TABLET (FP) PO PRN (20:50)
[2021-01-05] MEDS: ONDANSETRON 4 MG/2 ML VIAL IVPUSH PRN (02:52)
[2021-01-05] MEDS: ACETAMINOPHEN 325 MG TABLET (FP) PO PRN ×2 (06:14→17:26)
[2021-01-05 09:33] LABS: BASO % 0.1 % (0-2.0); EOS % 0.1 % (0-4.5); HEMATOCRIT 38.2 % (32.4-45.2); HEMOGLOBIN 12.5 GM/dL (10.7-15.3); LYMPH % 23.9 % (8-40); MCH 26.6 pg (25.7-33.7); MCHC 32.7 g/dl (32.0-36.0); MEAN CELL VOLUME 81.5 fl (80-96); MEAN PLT VOLUME 8.5 fl (7.5-11.1); MONO % 6.6 % (3.8-10.2); NEUT % 69.3 % (42.8-82.8); PLATELET COUNT 188 10^3/uL (134-434); RBC 4.69 M/mm3 (3.60-5.2); RDW 16.4 % (11.6-15.6); WHITE BLOOD COUNT 5.8 K/mm3 (4.0-10.0)
[2021-01-05] MEDS ORDERED: DEXTROSE 5%-WATER - 50 ML IVPB ONE (09:36)
[2021-01-05] MEDS ORDERED: cefTRIAXone SODIUM 1 GM VIAL ONE (09:36)
[2021-01-05] MEDS: DEXAMETHASONE SOD PHOSPHATE 4 MG/1 ML VIAL IVPUSH SCH (09:45)
[2021-01-05] MEDS: CEFTRIAXONE 1 GM in DEXTROSE 5%-WATER - 50 ML IVPB SCH (09:46)
[2021-01-05] MEDS: ENOXAPARIN NA (PORCINE) 40 MG/0.4 ML DISP.SYRIN SQ SCH (09:46)
[2021-01-05] MEDS: PANTOPRAZOLE SODIUM 40 MG VIAL IVPUSH SCH (09:46)
[2021-01-05] MEDS: ZINC SULFATE 220 MG CAPSULE (FP) PO SCH ×3 (09:46→21:00)
[2021-01-05] MEDS: CHOLECALCIFEROL (VIT D3) 5000 UNITS (125 MCG) CAP PO SCH (09:47)
[2021-01-05] MEDS: ASCORBIC ACID 250 MG TABLET (FP) PO SCH ×2 (09:47→21:00)
[2021-01-05 10:09] LABS: ALBUMIN 2.9 g/dl (3.4-5.0)
[2021-01-05 10:11] LABS: CALCIUM 8.1 mg/dL (8.5-10.1); MAGNESIUM 1.7 mg/dL (1.8-2.4)
[2021-01-05 10:14] LABS: CREATININE 1.1 mg/dL (0.55-1.3)
[2021-01-05 10:16] LABS: TOT PROT 6.6 g/dl (6.4-8.2)
[2021-01-05 10:22] LABS: BILIRUBIN,TOTAL 0.4 mg/dL (0.2-1)
[2021-01-05] MEDS ORDERED: POTASSIUM CHLORIDE ORAL LIQUID 20 MEQ/15 ML PO SCH (11:00)
[2021-01-05] MEDS ORDERED: PT OWN MED DRAWER 7, Y5N ONE ×2 (14:12→14:30)
[2021-01-05] MEDS: LACTATED RINGERS SOLUTION 1,000 ML/1,000 ML INFUS.BAG IV SCH (17:28)
[2021-01-05] MEDS ORDERED: POTASSIUM CHLORIDE ORAL LIQUID 20 MEQ/15 ML PO ONE (18:12)
[2021-01-05] MEDS: REMDESIVIR 100 MG in SODIUM CHLORIDE 250 ML IVPB SCH (20:54)
[2021-01-05] MEDS: MAGNESIUM OXIDE 400 MG TABLET (FP) PO SCH (21:00)
[2021-01-06 08:39] LABS: BASO % 0.2 % (0-2.0); EOS % 0.5 % (0-4.5); HEMATOCRIT 37.3 % (32.4-45.2); HEMOGLOBIN 12.3 GM/dL (10.7-15.3); LYMPH % 30.1 % (8-40); MCH 27.1 pg (25.7-33.7); MCHC 33.1 g/dl (32.0-36.0); MEAN CELL VOLUME 81.8 fl (80-96); MEAN PLT VOLUME 8.8 fl (7.5-11.1); MONO % 7.5 % (3.8-10.2); NEUT % 61.7 % (42.8-82.8); PLATELET COUNT 236 10^3/uL (134-434); RBC 4.56 M/mm3 (3.60-5.2); RDW 16.5 % (11.6-15.6); WHITE BLOOD COUNT 5.4 K/mm3 (4.0-10.0)
[2021-01-06] MEDS ORDERED: PT OWN MED DRAWER 7, Y5N ONE (08:58)
[2021-01-06] MEDS: DEXAMETHASONE SOD PHOSPHATE 4 MG/1 ML VIAL IVPUSH SCH (09:04)
[2021-01-06] MEDS: PANTOPRAZOLE SODIUM 40 MG VIAL IVPUSH SCH (09:04)
[2021-01-06] MEDS: ENOXAPARIN NA (PORCINE) 40 MG/0.4 ML DISP.SYRIN SQ SCH (09:05)
[2021-01-06] MEDS: ZINC SULFATE 220 MG CAPSULE (FP) PO SCH (09:05)
[2021-01-06] MEDS: MAGNESIUM OXIDE 400 MG TABLET (FP) PO SCH (09:05)
[2021-01-06] MEDS: ASCORBIC ACID 250 MG TABLET (FP) PO SCH (09:05)
[2021-01-06 09:06] LABS: CALCIUM 8.3 mg/dL (8.5-10.1)
[2021-01-06] MEDS: CHOLECALCIFEROL (VIT D3) 5000 UNITS (125 MCG) CAP PO SCH (09:06)
[2021-01-06 09:07] LABS: BLOOD UREA NITROGEN 14.4 mg/dL (7-18); MAGNESIUM 1.7 mg/dL (1.8-2.4)
[2021-01-06 09:12] LABS: BILIRUBIN,TOTAL 0.4 mg/dL (0.2-1); TOT PROT 6.7 g/dl (6.4-8.2)
[2021-01-06] MEDS ORDERED: POTASSIUM CHLORIDE TABS 20 MEQ TABLET.ER (FP) PO ONE (14:32)
[2021-01-06] MEDS: REMDESIVIR 100 MG in SODIUM CHLORIDE 250 ML IVPB SCH (19:38)
[2021-01-06 22:25] VITALS: BP 137/78; PULSE 76; TEMP 98.5
== END 2021-01-06 21:25 | disposition home or self-care (01) | DRG 137 ==
LOC: JER 06:21 → JERBED 13:26 → J8W 15:30
PROVIDERS: ADMIT Internal Medicine; ATTEND Nurse Practitioner Family
PROC: XW033E5 Introduction of Remdesivir Anti-infective into Peripheral Vein, Percutaneous Approach, New Technology Group 5 (ICD-10-PCS; principal; 2021-01-02)
DX: U07.1 COVID-19 (principal); J12.82 Pneumonia due to coronavirus disease 2019; J96.01 Acute respiratory failure with hypoxia; A08.39 Other viral enteritis; I10 Essential (primary) hypertension; N17.9 Acute kidney failure, unspecified; K76.0 Fatty (change of) liver, not elsewhere classified; G47.33 Obstructive sleep apnea (adult) (pediatric); E66.01 Morbid (severe) obesity due to excess calories; Z68.41 Body mass index [BMI] 40.0-44.9, adult; R74.01 Elevation of levels of liver transaminase levels; E86.0 Dehydration; N39.0 Urinary tract infection, site not specified; D25.9 Leiomyoma of uterus, unspecified
CPT/HCPCS: 36415; 71045-TC-FY; 74176-TC; 80053; 81003; 82248; 82436; 82550; 82553; 82570; 82728; 82803; 83036; 83605; 83615; 83690; 83735; 84132; 84133; 84156; 84300; 84484; 84703; 85025; 85379; 85610; 85730; 86140; 86769; 87040; 87086; 87804; 87807; 87899; 93005; 93010; 94010; 94761; 97116-GP; 97161-GP; 99283-25; 99285-25; C9399; C9803; J0131; Q0162; U0003; U0005

== ENCOUNTER 2021-01-09 02:03 | Inpatient (IN) | payer OTHER ==
[2021-01-09] MEDS ORDERED: LACTATED RINGERS SOLUTION 1000 ML INFUS.BAG IV ONE (02:50)
[2021-01-09] MEDS ORDERED: ONDANSETRON 4 MG/2 ML VIAL IVPUSH ONE (02:50)
[2021-01-09] MEDS ORDERED: ACETAMINOPHEN 1000 MG/100 ML VIAL (NON FORMULARY) IVPB ONE ×2 (02:50→20:50)
[2021-01-09] MEDS ORDERED: ONDANSETRON 4 MG/2 ML VIAL ONE ×3 (02:58→21:26)
[2021-01-09] MEDS ORDERED: ACETAMINOPHEN INJECTION 100 ML IVPB ONE ×2 (02:58→20:54)
[2021-01-09 03:34] LABS: BASO % 0.5 % (0-2.0); EOS % 1.4 % (0-4.5); HEMATOCRIT 41.6 % (32.4-45.2); HEMOGLOBIN 13.7 GM/dL (10.7-15.3); LYMPH % 11.4 % (8-40); MCH 26.8 pg (25.7-33.7); MCHC 33.1 g/dl (32.0-36.0); MEAN PLT VOLUME 7.5 fl (7.5-11.1); MONO % 6.5 % (3.8-10.2); NEUT % 80.2 % (42.8-82.8); PLATELET COUNT 414 10^3/uL (134-434); RBC 5.13 M/mm3 (3.60-5.2); RDW 16.6 % (11.6-15.6); WHITE BLOOD COUNT 9.1 K/mm3 (4.0-10.0)
[2021-01-09 03:51] LABS: CALCIUM 8.2 mg/dL (8.5-10.1)
[2021-01-09 03:53] LABS: ALBUMIN 3.2 g/dl (3.4-5.0); BLOOD UREA NITROGEN 13.3 mg/dL (7-18)
[2021-01-09 03:56] LABS: BILIRUBIN,TOTAL 0.6 mg/dL (0.2-1)
[2021-01-09 03:57] LABS: TOT PROT 7.2 g/dl (6.4-8.2)
[2021-01-09] MEDS ORDERED: METOCLOPRAMIDE HCL INJECTION 10 MG/2 ML VIAL IVPUSH ONE (05:36)
[2021-01-09] MEDS ORDERED: METOCLOPRAMIDE HCL INJECTION 10 MG/2 ML VIAL ONE ×2 (06:12→06:22)
[2021-01-09] MEDS ORDERED: D5-1/2NS+10 MEQ KCL - 10 MEQ/1,000 ML INFUS.BAG IV SCH (15:00)
[2021-01-09 15:08] LABS: MAGNESIUM 1.7 mg/dL (1.8-2.4)
[2021-01-09] MEDS ORDERED: MAGNESIUM SULF 50% (8.12 MEQ/2 ML-1 GM VIAL) IVPB ONE (16:37)
[2021-01-09] MEDS ORDERED: ENOXAPARIN NA (PORCINE) 40 MG/0.4 ML DISP.SYRIN SQ ONE (17:53)
[2021-01-09] MEDS ORDERED: MAGNESIUM SULF 50% (8.12 MEQ/2 ML-1 GM VIAL) ONE (17:53)
[2021-01-09] MEDS: ONDANSETRON 4 MG/2 ML VIAL IVPUSH PRN (18:04)
[2021-01-09] MEDS: ENOXAPARIN NA (PORCINE) 40 MG/0.4 ML DISP.SYRIN SQ SCH (18:04)
[2021-01-09] MEDS ORDERED: FAMOTIDINE 20 MG/50 ML IVPB 20 MG/50 ML MG IVPB ONE (20:54)
[2021-01-09] MEDS: FAMOTIDINE 20 MG/50 ML IVPB 20 MG/50 ML MG IVPB SCH (21:30)
[2021-01-10] MEDS: ONDANSETRON 4 MG/2 ML VIAL IVPUSH PRN ×2 (00:13→06:30)
[2021-01-10 06:26] LABS: BASO % 0.5 % (0-2.0); EOS % 0.7 % (0-4.5); HEMATOCRIT 39.3 % (32.4-45.2); HEMOGLOBIN 13.1 GM/dL (10.7-15.3); LYMPH % 10.7 % (8-40); MCH 27.2 pg (25.7-33.7); MCHC 33.2 g/dl (32.0-36.0); MEAN CELL VOLUME 82.1 fl (80-96); MEAN PLT VOLUME 7.9 fl (7.5-11.1); MONO % 6.6 % (3.8-10.2); NEUT % 81.5 % (42.8-82.8); PLATELET COUNT 433 10^3/uL (134-434); RBC 4.79 M/mm3 (3.60-5.2); RDW 16.2 % (11.6-15.6); WHITE BLOOD COUNT 9.1 K/mm3 (4.0-10.0)
[2021-01-10 06:43] LABS: ALBUMIN 2.9 g/dl (3.4-5.0); BLOOD UREA NITROGEN 11.9 mg/dL (7-18); CALCIUM 8.2 mg/dL (8.5-10.1)
[2021-01-10 06:46] LABS: CREATININE 1.1 mg/dL (0.55-1.3)
[2021-01-10 06:48] LABS: BILIRUBIN,TOTAL 0.6 mg/dL (0.2-1); TOT PROT 6.8 g/dl (6.4-8.2)
[2021-01-10] MEDS ORDERED: FAMOTIDINE 20 MG/50 ML IVPB 20 MG/50 ML MG IVPB ONE (10:55)
[2021-01-10] MEDS ORDERED: ENOXAPARIN NA (PORCINE) 40 MG/0.4 ML DISP.SYRIN SQ ONE (10:55)
[2021-01-10] MEDS: ENOXAPARIN NA (PORCINE) 40 MG/0.4 ML DISP.SYRIN SQ SCH (11:11)
[2021-01-10] MEDS: FAMOTIDINE 20 MG/50 ML IVPB 20 MG/50 ML MG IVPB SCH ×2 (11:11→23:55)
[2021-01-10] MEDS ORDERED: FERROUS SO4 325 MG TABLET (FP) ONE (18:16)
[2021-01-10] MEDS ORDERED: PT OWN MED DRAWER 7, Y5N ONE (18:16)
[2021-01-10] MEDS ORDERED: ATENOLOL 25 MG TABLET (FP) ONE (18:17)
[2021-01-10] MEDS: D5-1/2NS+10 MEQ KCL - 10 MEQ/1,000 ML INFUS.BAG IV SCH (18:36)
[2021-01-10] MEDS: ATENOLOL 50 MG TABLET (FP) PO SCH (18:36)
[2021-01-10] MEDS: FERROUS SO4 325 MG TABLET (FP) PO SCH (18:36)
[2021-01-10] MEDS ORDERED: ACETAMINOPHEN 325 MG TABLET (FP) ONE (18:58)
[2021-01-10] MEDS: ACETAMINOPHEN 325 MG TABLET (FP) PO PRN (19:02)
[2021-01-11] MEDS: D5-1/2NS+10 MEQ KCL - 10 MEQ/1,000 ML INFUS.BAG IV SCH ×3 (02:23→14:50)
[2021-01-11] MEDS: ONDANSETRON 4 MG/2 ML VIAL IVPUSH PRN ×3 (02:24→20:56)
[2021-01-11 04:49] VITALS: BMI 41.3
[2021-01-11] MEDS ORDERED: ACETAMINOPHEN 1000 MG/100 ML VIAL (NON FORMULARY) IVPB PRN (04:59)
[2021-01-11] MEDS ORDERED: ACETAMINOPHEN 1000 MG/100 ML VIAL (NON FORMULARY) IVPB ONE (05:00)
[2021-01-11] MEDS ORDERED: PT OWN MED DRAWER 7, Y5N ONE (09:05)
[2021-01-11] MEDS: ATENOLOL 50 MG TABLET (FP) PO SCH (09:13)
[2021-01-11] MEDS: ENOXAPARIN NA (PORCINE) 40 MG/0.4 ML DISP.SYRIN SQ SCH (09:13)
[2021-01-11] MEDS: FAMOTIDINE 20 MG/50 ML IVPB 20 MG/50 ML MG IVPB SCH ×2 (09:13→22:50)
[2021-01-11] MEDS: FERROUS SO4 325 MG TABLET (FP) PO SCH (09:13)
[2021-01-11 09:33] LABS: BASO % 0.5 % (0-2.0); HEMATOCRIT 35.2 % (32.4-45.2); HEMOGLOBIN 11.7 GM/dL (10.7-15.3); LYMPH % 16.2 % (8-40); MCH 27.2 pg (25.7-33.7); MCHC 33.2 g/dl (32.0-36.0); MEAN CELL VOLUME 81.9 fl (80-96); MEAN PLT VOLUME 7.6 fl (7.5-11.1); MONO % 6.5 % (3.8-10.2); NEUT % 75.8 % (42.8-82.8); PLATELET COUNT 443 10^3/uL (134-434); RDW 16.3 % (11.6-15.6); WHITE BLOOD COUNT 8.3 K/mm3 (4.0-10.0)
[2021-01-11 10:22] LABS: ALBUMIN 2.6 g/dl (3.4-5.0); MAGNESIUM 1.8 mg/dL (1.8-2.4)
[2021-01-11 10:24] LABS: CALCIUM 7.8 mg/dL (8.5-10.1)
[2021-01-11 10:25] LABS: BLOOD UREA NITROGEN 7.6 mg/dL (7-18)
[2021-01-11 10:26] LABS: BILIRUBIN,TOTAL 0.5 mg/dL (0.2-1); TOT PROT 6.2 g/dl (6.4-8.2)
[2021-01-11 10:28] LABS: PHOSPHOROUS 2.7 mg/dL (2.5-4.9)
[2021-01-11 11:41] LABS: PH,URINE 6.5 (5.0-8.0); URINE APPEARANCE CLEAR; URINE BILIRUBIN NEGATIVE (NEGATIVE); URINE COLOR YELLOW; URINE GLUCOSE (UA) NEGATIVE (NEGATIVE); URINE KETONE NEGATIVE (NEGATIVE); URINE LEUK ESTERASE NEGATIVE (NEGATIVE); URINE NITRITE NEGATIVE (NEGATIVE); URINE PROTEIN TRACE (NEGATIVE); URINE UROBILINOGEN 0.2 mg/dL (0.2-1.0)
[2021-01-11] MEDS: ACETAMINOPHEN 325 MG TABLET (FP) PO PRN ×2 (17:35→23:44)
[2021-01-11] MEDS: LACTATED RINGERS SOLUTION 1,000 ML/1,000 ML INFUS.BAG IV SCH (19:05)
[2021-01-11] MEDS: AZITHROMYCIN IVPB 500 MG/250 ML BAG IVPB SCH (20:13)
[2021-01-12] MEDS: ACETAMINOPHEN 325 MG TABLET (FP) PO PRN (04:44)
[2021-01-12] MEDS: ATENOLOL 50 MG TABLET (FP) PO SCH (09:50)
[2021-01-12] MEDS: FAMOTIDINE 20 MG/50 ML IVPB 20 MG/50 ML MG IVPB SCH ×2 (09:50→21:35)
[2021-01-12] MEDS: FERROUS SO4 325 MG TABLET (FP) PO SCH (09:50)
[2021-01-12] MEDS: ENOXAPARIN NA (PORCINE) 40 MG/0.4 ML DISP.SYRIN SQ SCH ×2 (09:50→21:36)
[2021-01-12] MEDS: AZITHROMYCIN IVPB 500 MG/250 ML BAG IVPB SCH (10:02)
[2021-01-12] MEDS: LACTATED RINGERS SOLUTION 1,000 ML/1,000 ML INFUS.BAG IV SCH ×2 (10:02→19:40)
[2021-01-12 11:27] LABS: BASO % 0.6 % (0-2.0); EOS % 0.4 % (0-4.5); HEMATOCRIT 35.8 % (32.4-45.2); HEMOGLOBIN 11.8 GM/dL (10.7-15.3); LYMPH % 14.5 % (8-40); MCH 26.7 pg (25.7-33.7); MCHC 32.9 g/dl (32.0-36.0); MEAN CELL VOLUME 81.1 fl (80-96); MEAN PLT VOLUME 7.7 fl (7.5-11.1); MONO % 4.8 % (3.8-10.2); NEUT % 79.7 % (42.8-82.8); PLATELET COUNT 462 10^3/uL (134-434); RBC 4.42 M/mm3 (3.60-5.2); RDW 16.3 % (11.6-15.6); WHITE BLOOD COUNT 9.7 K/mm3 (4.0-10.0)
[2021-01-12 11:51] LABS: ALBUMIN 2.7 g/dl (3.4-5.0); CALCIUM 8.3 mg/dL (8.5-10.1)
[2021-01-12 11:52] LABS: BLOOD UREA NITROGEN 7.4 mg/dL (7-18); MAGNESIUM 1.8 mg/dL (1.8-2.4)
[2021-01-12 11:55] LABS: PHOSPHOROUS 2.6 mg/dL (2.5-4.9)
[2021-01-12 11:56] LABS: BILIRUBIN,TOTAL 0.6 mg/dL (0.2-1); TOT PROT 6.5 g/dl (6.4-8.2)
[2021-01-12 12:34] LABS: HIV INTERPRETATION NEGATIVE (NEGATIVE)
[2021-01-12 12:51] LABS: ERYTHROCYTE SEDIMENTATION RATE 67 mm/hr (0-30)
[2021-01-12] MEDS: ONDANSETRON 4 MG/2 ML VIAL IVPUSH PRN (14:40)
[2021-01-12] MEDS ORDERED: DEXAMETHASONE SOD PHOSPHATE 4 MG/1 ML VIAL IVPUSH SCH (15:00)
[2021-01-13] MEDS ORDERED: predniSONE 20 MG TABLET (UD) PO SCH (10:00)
[2021-01-13 10:51] LABS: BASO % 0.4 % (0-2.0); EOS % 0.1 % (0-4.5); HEMOGLOBIN 11.2 GM/dL (10.7-15.3); LYMPH % 12.4 % (8-40); MCH 26.7 pg (25.7-33.7); MCHC 32.9 g/dl (32.0-36.0); MEAN CELL VOLUME 81.2 fl (80-96); MEAN PLT VOLUME 7.9 fl (7.5-11.1); MONO % 4.7 % (3.8-10.2); NEUT % 82.4 % (42.8-82.8); PLATELET COUNT 524 10^3/uL (134-434); RBC 4.18 M/mm3 (3.60-5.2); RDW 16.1 % (11.6-15.6); WHITE BLOOD COUNT 14.7 K/mm3 (4.0-10.0)
[2021-01-13 11:26] LABS: BLOOD UREA NITROGEN 8.7 mg/dL (7-18)
[2021-01-13 11:28] LABS: ALBUMIN 2.7 g/dl (3.4-5.0); CALCIUM 8.4 mg/dL (8.5-10.1)
[2021-01-13 11:29] LABS: MAGNESIUM 1.7 mg/dL (1.8-2.4)
[2021-01-13 11:33] LABS: BILIRUBIN,TOTAL 0.4 mg/dL (0.2-1); TOT PROT 6.5 g/dl (6.4-8.2)
[2021-01-13] MEDS ORDERED: PT OWN MED DRAWER 7, Y5N ONE (11:41)
[2021-01-13] MEDS: FERROUS SO4 325 MG TABLET (FP) PO SCH (11:56)
[2021-01-13] MEDS: FAMOTIDINE 20 MG/50 ML IVPB 20 MG/50 ML MG IVPB SCH ×2 (11:57→21:35)
[2021-01-13] MEDS: ATENOLOL 50 MG TABLET (FP) PO SCH (11:57)
[2021-01-13] MEDS: ENOXAPARIN NA (PORCINE) 40 MG/0.4 ML DISP.SYRIN SQ SCH ×2 (11:57→21:35)
[2021-01-13] MEDS: DEXAMETHASONE SOD PHOSPHATE 4 MG/1 ML VIAL IVPUSH SCH (14:30)
[2021-01-13] MEDS: LACTATED RINGERS SOLUTION 1,000 ML/1,000 ML INFUS.BAG IV SCH (21:35)
[2021-01-13] MEDS: ACETAMINOPHEN 325 MG TABLET (FP) PO PRN (21:55)
[2021-01-14 09:00] LABS: BASO % 0.5 % (0-2.0); EOS % 0.2 % (0-4.5); HEMOGLOBIN 11.1 GM/dL (10.7-15.3); LYMPH % 18.5 % (8-40); MCH 26.6 pg (25.7-33.7); MCHC 32.6 g/dl (32.0-36.0); MEAN CELL VOLUME 81.4 fl (80-96); MONO % 7.2 % (3.8-10.2); NEUT % 73.6 % (42.8-82.8); PLATELET COUNT 478 10^3/uL (134-434); RBC 4.18 M/mm3 (3.60-5.2); RDW 16.2 % (11.6-15.6); WHITE BLOOD COUNT 11.6 K/mm3 (4.0-10.0)
[2021-01-14] MEDS: DEXAMETHASONE SOD PHOSPHATE 4 MG/1 ML VIAL IVPUSH SCH (10:22)
[2021-01-14] MEDS: ATENOLOL 50 MG TABLET (FP) PO SCH (10:22)
[2021-01-14] MEDS: ENOXAPARIN NA (PORCINE) 40 MG/0.4 ML DISP.SYRIN SQ SCH (10:23)
[2021-01-14] MEDS: FERROUS SO4 325 MG TABLET (FP) PO SCH (10:23)
[2021-01-14] MEDS ORDERED: diphenhydrAMINE HCL 25 MG CAPSULE (FP) PO ONE (10:28)
[2021-01-14] MEDS ORDERED: FAMOTIDINE 20 MG TABLET PO SCH (10:30)
[2021-01-14 11:00] LABS: ALBUMIN 2.7 g/dl (3.4-5.0); BLOOD UREA NITROGEN 10.6 mg/dL (7-18); CALCIUM 8.5 mg/dL (8.5-10.1)
[2021-01-14 11:01] LABS: MAGNESIUM 1.9 mg/dL (1.8-2.4)
[2021-01-14 11:03] LABS: PHOSPHOROUS 3.8 mg/dL (2.5-4.9)
[2021-01-14 11:04] LABS: BILIRUBIN,TOTAL 0.3 mg/dL (0.2-1); TOT PROT 6.3 g/dl (6.4-8.2)
[2021-01-14] MEDS: FAMOTIDINE 20 MG/50 ML IVPB 20 MG/50 ML MG IVPB SCH (12:24)
[2021-01-14] MEDS ORDERED: predniSONE 20 MG TABLET (UD) PO SCH (12:45)
[2021-01-14 14:32] VITALS: BP 139/87; PULSE 66; TEMP 98.1
[2021-01-14] MEDS: ACETAMINOPHEN 325 MG TABLET (FP) PO PRN (15:42)
[2021-01-14] MEDS ORDERED: BENZOCAINE/MENTH/CETYLPYRD CL 1 EACH LOZENGE MM PRN (16:03)
== END 2021-01-14 20:29 | disposition left against medical advice (07) | DRG 137 ==
LOC: JER 02:03 → JERBED 05:37 → J6S 01-10 20:18
PROVIDERS: ADMIT Internal Medicine; ATTEND Internal Medicine
DX: U07.1 COVID-19 (principal); J12.82 Pneumonia due to coronavirus disease 2019; R11.2 Nausea with vomiting, unspecified; E86.0 Dehydration; K29.00 Acute gastritis without bleeding; I10 Essential (primary) hypertension; E66.01 Morbid (severe) obesity due to excess calories; Z68.41 Body mass index [BMI] 40.0-44.9, adult; R74.01 Elevation of levels of liver transaminase levels; K76.0 Fatty (change of) liver, not elsewhere classified; D25.9 Leiomyoma of uterus, unspecified; E83.42 Hypomagnesemia
CPT/HCPCS: 36415; 71045-TC-FY; 71250-TC; 80053; 81003; 82728; 83615; 83690; 83735; 84100; 85025; 85379; 85651; 86140; 87040; 87086; 87389; 87899; 93005; 93010; 93970-TC; 99285-25; C9803; J0131; U0003; U0005

== ENCOUNTER 2021-09-23 09:51 | Emergency (ER) | payer OTHER ==
[2021-09-23 09:57] VITALS: BP 137/100; PULSE 94; TEMP 98; BMI 40.6
[2021-09-23] MEDS ORDERED: KETOROLAC TROMETHAMINE 30 MG/1 ML VIAL IM ONE (10:31)
[2021-09-23] MEDS ORDERED: KETOROLAC TROMETHAMINE 30 MG/1 ML VIAL ONE (11:06)
== END 2021-09-23 11:20 | disposition home or self-care (01) ==
LOC: JER 09:51
PROC: 3E0233Z Introduction of Anti-inflammatory into Muscle, Percutaneous Approach (ICD-10-PCS; principal; 2021-09-23)
DX: M25.571 Pain in right ankle and joints of right foot (principal)
CPT/HCPCS: 73610-TC-RT-FY; 73630-TC-RT-FY; 99284-25

== ENCOUNTER 2022-03-18 10:13 | Emergency (ER) | payer OTHER ==
[2022-03-18 10:45] VITALS: BP 154/97; PULSE 66; RESP 16; TEMP 97.5; BMI 40.7
[2022-03-18] MEDS ORDERED: IBUPROFEN 600 MG TABLET (FP) PO ONE ×2 (10:55→11:04)
[2022-03-18] MEDS ORDERED: IBUPROFEN 400 MG TABLET (FP) PO ONE (11:07)
== END 2022-03-18 12:20 | disposition home or self-care (01) ==
LOC: JERFT 10:13 → JER 10:13 → JERFT 12:20
DX: M10.071 Idiopathic gout, right ankle and foot (principal)
CPT/HCPCS: 73610-TC-RT-FY; 73630-TC-RT-FY; 99283-25

== ENCOUNTER 2022-04-26 08:12 | Emergency (ER) | payer OTHER ==
[2022-04-26 08:20] VITALS: BP 136/95; PULSE 109; RESP 20; TEMP 98.6; BMI 40.7
[2022-04-26] MEDS ORDERED: KETOROLAC TROMETHAMINE 30 MG/1 ML VIAL IM ONE (09:30)
[2022-04-26] MEDS ORDERED: KETOROLAC TROMETHAMINE 30 MG/1 ML VIAL ONE (09:31)
== END 2022-04-26 11:24 | disposition home or self-care (01) ==
LOC: JER 08:12
PROC: 3E0233Z Introduction of Anti-inflammatory into Muscle, Percutaneous Approach (ICD-10-PCS; principal; 2022-04-26)
DX: U07.1 COVID-19 (principal)
CPT/HCPCS: 0241U-QW; 99284-25

== ENCOUNTER 2022-10-21 10:19 | Inpatient (IN) | payer OTHER ==
[2022-10-21 11:05] LABS: EOS % 2.4 % (0-4.5); HEMATOCRIT 41.5 % (32.4-45.2); LYMPH % 53.7 % (8-40); MCH 28.8 pg (25.7-33.7); MCHC 33.6 g/dl (32.0-36.0); MEAN CELL VOLUME 85.8 fl (80-96); MEAN PLT VOLUME 10.1 fl (7.5-11.1); MONO % 6.5 % (3.8-10.2); NEUT % 36.4 % (42.8-82.8); PLATELET COUNT 230 10^3/uL (134-434); RBC 4.84 M/mm3 (3.60-5.2); RDW 13.6 % (11.6-15.6); WHITE BLOOD COUNT 7.9 K/mm3 (4.0-10.0)
[2022-10-21 11:10] LABS: INR 1.04 (0.83-1.09); PROTHROMBIN TIME (PATIENT) 12.1 SEC (9.7-13.0)
[2022-10-21 11:31] LABS: CALCIUM 9.6 mg/dL (8.5-10.1); POTASSIUM 4.4 mmol/L (3.5-5.1)
[2022-10-21 11:33] LABS: ALBUMIN 4.2 g/dl (3.4-5.0); BLOOD UREA NITROGEN 16.7 mg/dL (7-18)
[2022-10-21 11:35] LABS: CREATININE 1.2 mg/dL (0.55-1.3)
[2022-10-21 11:37] LABS: TOT PROT 7.9 g/dl (6.4-8.2)
[2022-10-21 11:38] LABS: BILIRUBIN,TOTAL 0.5 mg/dL (0.2-1)
[2022-10-21] MEDS ORDERED: ASPIRIN 325 MG ENTERIC COATED TABLET (FP) PO ONE (11:46)
[2022-10-21] MEDS ORDERED: ASPIRIN 325 MG ENTERIC COATED TABLET (FP) ONE (11:47)
[2022-10-21] MEDS: SODIUM CHLORIDE 1,000 ML IV SCH (11:51)
[2022-10-21 13:19] LABS: URINE APPEARANCE CLEAR; URINE BILIRUBIN NEGATIVE (NEGATIVE); URINE COLOR YELLOW; URINE GLUCOSE (UA) NEGATIVE (NEGATIVE); URINE KETONE NEGATIVE (NEGATIVE); URINE LEUK ESTERASE NEGATIVE (NEGATIVE); URINE NITRITE NEGATIVE (NEGATIVE); URINE PROTEIN 1+ (NEGATIVE)
[2022-10-21 13:20] LABS: EPI CELLS 43.3 /uL (0-25.1); HYALINE CASTS 1.59 /uL (0-3.1); URINE BACTERIA 465.9 /uL (0-1359); URINE RBC 11.1 /uL (0-23.9); URINE WBC 25.5 /uL (0-25.8)
[2022-10-21 14:48] VITALS: BMI 44.2
[2022-10-21] MEDS: GABAPENTIN 300 MG CAPSULE PO SCH (21:12)
[2022-10-21] MEDS ORDERED: CYCLOBENZAPRINE HCL 10 MG TABLET (FP) PO SCH (22:00)
[2022-10-21] MEDS ORDERED: ATORVASTATIN CA 80 MG TABLET (FP) PO SCH (22:00)
[2022-10-22] MEDS ORDERED: LEVOTHYROXINE NA 50 MCG TABLET (FP) PO SCH (07:00)
[2022-10-22 08:06] LABS: BASO % 0.8 % (0-2.0); EOS % 2.1 % (0-4.5); HEMATOCRIT 39.9 % (32.4-45.2); HEMOGLOBIN 13.3 GM/dL (10.7-15.3); LYMPH % 38.3 % (8-40); MCH 28.7 pg (25.7-33.7); MCHC 33.5 g/dl (32.0-36.0); MEAN CELL VOLUME 85.7 fl (80-96); NEUT % 51.8 % (42.8-82.8); PLATELET COUNT 204 10^3/uL (134-434); RBC 4.65 M/mm3 (3.60-5.2); RDW 13.5 % (11.6-15.6); WHITE BLOOD COUNT 6.5 K/mm3 (4.0-10.0)
[2022-10-22 08:19] LABS: POTASSIUM 3.8 mmol/L (3.5-5.1)
[2022-10-22 08:27] LABS: ALBUMIN 3.9 g/dl (3.4-5.0); BLOOD UREA NITROGEN 12.8 mg/dL (7-18); CALCIUM 9.4 mg/dL (8.5-10.1); MAGNESIUM 1.4 mg/dL (1.8-2.4)
[2022-10-22 08:30] LABS: BILIRUBIN,TOTAL 0.8 mg/dL (0.2-1); CREATININE 1.2 mg/dL (0.55-1.3); PHOSPHOROUS 3.7 mg/dL (2.5-4.9)
[2022-10-22 08:31] LABS: TOT PROT 7.4 g/dl (6.4-8.2)
[2022-10-22] MEDS: GABAPENTIN 300 MG CAPSULE PO SCH (09:38)
[2022-10-22 09:47] VITALS: RESP 20
[2022-10-22] MEDS ORDERED: PATIENT'S OWN MEDICATION (NON-FORMULARY) (Atenolol/Chlorthalidone [Atenolol-Chlorthalidone PO SCH (10:00)
[2022-10-22] MEDS ORDERED: CHLORTHALIDONE 25 MG TABLET PO SCH (10:00)
[2022-10-22] MEDS ORDERED: ATENOLOL 50 MG TABLET (FP) PO SCH (10:00)
[2022-10-22] MEDS ORDERED: DULoxetine HCL 60 MG CAPSULE.DR PO SCH (10:00)
[2022-10-22] MEDS ORDERED: DULoxetine HCL 30 MG CAPSULE.DR PO SCH (10:00)
[2022-10-22] MEDS ORDERED: ASPIRIN COATED 81 MG TABLET.EC PO SCH (10:00)
[2022-10-22] MEDS ORDERED: ALLOPURINOL 100 MG TABLET (FP) PO SCH (10:00)
[2022-10-22] MEDS ORDERED: ENOXAPARIN NA (PORCINE) 40 MG/0.4 ML DISP.SYRIN SQ SCH (10:00)
[2022-10-22] MEDS ORDERED: LOSARTAN POTASSIUM 50 MG TABLET PO ONE (10:26)
[2022-10-22] MEDS: SODIUM CHLORIDE 1,000 ML IV SCH (11:13)
[2022-10-22] MEDS: INSULIN SLIDING SCALE (NOVOLOG) 1 VIAL SQ SCH ×2 (11:13→17:24)
[2022-10-22] MEDS ORDERED: MAGNESIUM 2GM/50ML STERILE WATER IVPB IVPB ONE (12:57)
[2022-10-22 18:06] VITALS: BP 140/87; PULSE 97; TEMP 98
== END 2022-10-22 19:27 | disposition home or self-care (01) | DRG 45 ==
LOC: JER 10:19 → JERBED 13:11 → J4W 14:20
PROVIDERS: ADMIT Internal Medicine; ATTEND Internal Medicine
DX: I63.89 Other cerebral infarction (principal); I10 Essential (primary) hypertension; E78.5 Hyperlipidemia, unspecified; R73.03 Prediabetes; R20.0 Anesthesia of skin; R53.1 Weakness; E66.01 Morbid (severe) obesity due to excess calories; Z68.41 Body mass index [BMI] 40.0-44.9, adult; E03.9 Hypothyroidism, unspecified; M10.9 Gout, unspecified; R29.703 NIHSS score 3; R82.81 Pyuria; E83.42 Hypomagnesemia
CPT/HCPCS: 0241U-QW; 36415; 70450-TC; 70496-TC; 70498-TC; 70551-TC; 80053; 80061; 81003; 82550; 82553; 82962; 83036; 83735; 84100; 84439; 84443; 84484; 85025; 85610; 85730; 86850; 86900; 86901; 93005; 93010; 93306-TC; 97116-GP; 97162-GP; 99291; Q9967

== ENCOUNTER 2023-07-22 11:31 | Observation (INO) | payer OTHER ==
[2023-07-22] MEDS ORDERED: METOCLOPRAMIDE HCL INJECTION 10 MG/2 ML VIAL ONE (12:19)
[2023-07-22] MEDS ORDERED: FAMOTIDINE 20 MG/50 ML IVPB 20 MG/50 ML MG IVPB ONE (12:20)
[2023-07-22] MEDS ORDERED: ACETAMINOPHEN INJECTION 100 ML IVPB ONE (12:20)
[2023-07-22] MEDS: METOCLOPRAMIDE HCL INJECTION 10 MG/2 ML VIAL IVPUSH ONE (12:42)
[2023-07-22] MEDS: SODIUM CHLORIDE 1,000 ML IV STA ×3 (12:42→17:09)
[2023-07-22] MEDS: ACETAMINOPHEN 1000 MG/100 ML BAG IVPB ONE (12:42)
[2023-07-22] MEDS: FAMOTIDINE 20 MG/50 ML IVPB 20 MG/50 ML MG IVPB ONE (12:42)
[2023-07-22 12:58] LABS: INR 1.07 (0.83-1.09); PROTHROMBIN TIME (PATIENT) 12.4 SEC (9.7-13.0)
[2023-07-22 12:59] LABS: BASO % 0.6 % (0-2.0); EOS % 0.2 % (0-4.5); HEMATOCRIT 49.1 % (32.4-45.2); HEMOGLOBIN 15.9 GM/dL (10.7-15.3); LYMPH % 33.7 % (8-40); MCHC 32.5 g/dl (32.0-36.0); MEAN CELL VOLUME 89.3 fl (80-96); MEAN PLT VOLUME 8.8 fl (7.5-11.1); MONO % 11.9 % (3.8-10.2); NEUT % 53.6 % (42.8-82.8); PLATELET COUNT 195 10^3/uL (134-434); RDW 16.3 % (11.6-15.6)
[2023-07-22 13:00] LABS: ACTIVATED PTT 35.5 SECONDS (25.2-36.5)
[2023-07-22 13:06] LABS: POTASSIUM 4.1 mmol/L (3.5-5.1)
[2023-07-22 13:08] LABS: ALBUMIN 3.8 g/dl (3.4-5.0); CALCIUM 8.5 mg/dL (8.5-10.1)
[2023-07-22 13:09] LABS: BLOOD UREA NITROGEN 37.1 mg/dL (7-18)
[2023-07-22 13:12] LABS: CREATININE 2.8 mg/dL (0.55-1.3)
[2023-07-22 13:13] LABS: BILIRUBIN,TOTAL 0.5 mg/dL (0.2-1); TOT PROT 7.7 g/dl (6.4-8.2)
[2023-07-22] MEDS ORDERED: ACETAMINOPHEN 1000 MG/100 ML BAG IVPB PRN (14:37)
[2023-07-22] MEDS ORDERED: ACETAMINOPHEN 325 MG TABLET (FP) PO PRN (14:37)
[2023-07-22 15:52] LABS: MAGNESIUM 1.4 mg/dL (1.8-2.4)
[2023-07-22] MEDS: SODIUM CHLORIDE 1,000 ML IV SCH (17:09)
[2023-07-22] MEDS: OSELTAMIVIR PHOSPHATE 30 MG CAPSULE PO SCH (17:09)
[2023-07-22] MEDS: INSULIN ASPART SLIDING SCALE (NOVOLOG) 1 VIAL SQ SCH (19:02)
[2023-07-22] MEDS ORDERED: ATORVASTATIN CA 80 MG TABLET (FP) ONE (22:13)
[2023-07-22] MEDS ORDERED: GABAPENTIN 300 MG CAPSULE ONE (22:13)
[2023-07-22] MEDS ORDERED: HEPARIN NA (PORCINE) 5,000 UNITS/ML 1ML VIAL ONE (22:14)
[2023-07-22] MEDS ORDERED: MAGNESIUM SULFATE IN WATER 2 GM/50 ML IVPB IVPB ONE (22:14)
[2023-07-22] MEDS: GABAPENTIN 300 MG CAPSULE PO SCH (22:25)
[2023-07-22] MEDS: ATORVASTATIN CA 80 MG TABLET (FP) PO SCH (22:25)
[2023-07-22] MEDS: MAGNESIUM SULFATE IN WATER 2 GM/50 ML IVPB IVPB ONE (22:25)
[2023-07-22] MEDS: HEPARIN NA (PORCINE) 5,000 UNITS/ML 1ML VIAL SQ SCH (22:25)
[2023-07-22 23:58] LABS: PH,URINE 5.5 (5.0-8.0); URINE APPEARANCE Clear; URINE BILIRUBIN Negative (NEGATIVE); URINE COLOR Yellow; URINE GLUCOSE (UA) 2+ (NEGATIVE); URINE KETONE Negative (NEGATIVE); URINE LEUK ESTERASE Negative (NEGATIVE); URINE NITRITE Negative (NEGATIVE); URINE PROTEIN 2+ (NEGATIVE); URINE UROBILINOGEN 0.2 mg/dL (0.2-1.0)
[2023-07-23] MEDS: SODIUM CHLORIDE 1,000 ML IV SCH
[2023-07-23 00:34] LABS: EPI CELLS MODERATE /uL (0-25.1); URINE BACTERIA OCCASIONAL /uL (0-1359); URINE WBC 0-3 / HPF /uL (0-25.8)
[2023-07-23 00:35] LABS: YEAST FEW (NEGATIVE)
[2023-07-23 01:41] VITALS: BMI 42.0
[2023-07-23] MEDS: LEVOTHYROXINE NA 50 MCG TABLET (FP) PO SCH (06:32)
[2023-07-23 08:34] LABS: HEMATOCRIT 39.2 % (32.4-45.2); HEMOGLOBIN 13.1 GM/dL (10.7-15.3); MCHC 33.4 g/dl (32.0-36.0); PLATELET COUNT 164 10^3/uL (134-434); RDW 16.3 % (11.6-15.6); WHITE BLOOD COUNT 3.9 K/mm3 (4.0-10.0)
[2023-07-23 08:51] LABS: POTASSIUM 3.5 mmol/L (3.5-5.1)
[2023-07-23 09:05] LABS: ALBUMIN 3.4 g/dl (3.4-5.0); CALCIUM 8.2 mg/dL (8.5-10.1)
[2023-07-23 09:06] LABS: BLOOD UREA NITROGEN 32.4 mg/dL (7-18); CREATININE 1.7 mg/dL (0.55-1.3); PHOSPHOROUS 3.1 mg/dL (2.5-4.9)
[2023-07-23 09:07] LABS: BILIRUBIN,TOTAL 0.4 mg/dL (0.2-1); TOT PROT 6.6 g/dl (6.4-8.2)
[2023-07-23] MEDS: ASPIRIN COATED 81 MG TABLET.EC PO SCH (09:10)
[2023-07-23] MEDS: DULoxetine HCL 30 MG CAPSULE.DR PO SCH (09:10)
[2023-07-23] MEDS: ALLOPURINOL 100 MG TABLET (FP) PO SCH (09:10)
[2023-07-23 09:11] LABS: MAGNESIUM 2.5 mg/dL (1.8-2.4)
[2023-07-23 13:46] VITALS: BP 122/74; PULSE 86; RESP 20; TEMP 98.6
== END 2023-07-23 14:21 | disposition home or self-care (01) ==
LOC: JER 11:31 → INTOOBSV 13:30 → UNDOADMOB 13:30 → JERBED 13:30 → J8W 23:25 → JERBED 23:25
PROVIDERS: ADMIT Internal Medicine; ATTEND Nurse Practitioner Acute Care
PROC: 3E033NZ Introduction of Analgesics, Hypnotics, Sedatives into Peripheral Vein, Percutaneous Approach (ICD-10-PCS; principal; 2023-07-22)
PROC: 3E033GC Introduction of Other Therapeutic Substance into Peripheral Vein, Percutaneous Approach (ICD-10-PCS; 2023-07-22)
PROC: 3E023GC Introduction of Other Therapeutic Substance into Muscle, Percutaneous Approach (ICD-10-PCS; 2023-07-22)
PROC: 3E0337Z Introduction of Electrolytic and Water Balance Substance into Peripheral Vein, Percutaneous Approach (ICD-10-PCS; 2023-07-22)
DX: J09.X2 Influenza due to identified novel influenza A virus with other respiratory manifestations (principal); J40 Bronchitis, not specified as acute or chronic; E11.9 Type 2 diabetes mellitus without complications; I10 Essential (primary) hypertension; E78.5 Hyperlipidemia, unspecified; N18.9 Chronic kidney disease, unspecified; E66.9 Obesity, unspecified; Z88.8 Allergy status to other drugs, medicaments and biological substances
CPT/HCPCS: 0241U-QW; 36415; 71046-TC-FY; 76700-TC; 80053; 81003; 82010; 82570; 82962; 83605; 83690; 83735; 84100; 84132; 84300; 84478; 84484; 84703; 85025; 85027; 85610; 85730; 87086; 93005; 93010; 96361; 96365; 96367; 96372; 96375; 99285-25; G0378; J0131; J1644